=== PATIENT | female | born 1990 | race Caucasian/White ===

== ENCOUNTER 2024-02-05 16:20 | Emergency (ER) | payer SELFPAY ==
[2024-02-05 16:40] VITALS: PULSE 72
== END 2024-02-05 17:09 | disposition left against medical advice (07) ==
LOC: ER 16:31
DX: R11.10 Vomiting, unspecified (principal); Z53.21 Procedure and treatment not carried out due to patient leaving prior to being seen by health care provider
CPT/HCPCS: 99281